=== PATIENT | female | born 1970 | race Two or more races ===

== ENCOUNTER 2019-01-21 07:27 | Inpatient (IN) | payer BC ==
[~2019-01-21 07:27] MED LIST: Lactated Ringers 1,000 ML IV SCH; Lidocaine 1%/Sod Bicarbonate in NS 8.4% 1 ML Syringe IDERM PRN; Sodium Chloride 0.9% 10 ML Syringe FLUSH PRN
[2019-01-21] MEDS ORDERED: Scopolamine 1.5 MG Transdermal Patch TRDERM SCH (08:20)
[2019-01-21] MEDS ORDERED: Sodium Chloride 0.9% 50 ML SDV ONE (08:34)
[2019-01-21] MEDS ORDERED: Lidocaine 1% with EPINEPHrine 1:100,000 20 ML MDV ONE (08:34)
[2019-01-21] MEDS ORDERED: Bupivacaine 0.5% 30 ML SDV ONE (08:34)
[2019-01-21] MEDS ORDERED: Lidocaine 1% 2 ML ONE ×2 (08:37)
[2019-01-21] MEDS ORDERED: Propofol 200 MG/20 ML SDV ONE (08:37)
[2019-01-21] MEDS ORDERED: fentaNYL 250 MCG/5 ML SDV ONE (08:37)
[2019-01-21] MEDS ORDERED: Midazolam 1 MG/ML 2 ML SDV ONE (08:37)
[2019-01-21] MEDS ORDERED: Rocuronium 50 MG/5 ML Vial ONE (08:41)
--- NOTE | 2019-01-21 08:50 | PCM.PREANE ---
Preanesthetic Assessment - Anesthesia/Transfusion/Family Hx Anesthesia History: Prior Anesthesia Reaction Type of Anesthesia Reaction: Other (see below) (ANGELES-scopalamine patch pre-op) Transfusion History: No Prior Transfusion(s) - Review of Systems General: No Symptoms Pulmonary: No Symptoms Cardiovascular: No Symptoms Gastrointestinal: No Symptoms Neurological: No Symptoms Other: Reports: None - Physical Assessment NPO Status Date: 01/20/19 NPO Status Time: 22:30 Pulse: 64 O2 Sat by Pulse Oximetry: 98 Respiratory Rate: 16 Blood Pressure: 127/80 Vital Signs: Last Vital Signs Temp 36.6 C 01/21/19 08:00 Pulse 64 01/21/19 08:00 Resp 16 01/21/19 08:00 BP 127/80 01/21/19 08:00 Pulse Ox 98 01/21/19 08:00 Height: 1.68 m Weight: 70.76 kg ASA Class: 1 Mental Status: Alert & Oriented x3 Airway Class: Mallampati = 1 Dentition: Reports: Normal Dentition Thyro-Mental Finger Breadths: 3 Mouth Opening Finger Breadths: 3 ROM/Head Extension: Full Lungs: Clear to Auscultation, Normal Respiratory Effort Cardiovascular: Regular Rate, Regular Rhythm - Lab Values: Laboratory Last Values Urine HCG, Qual Negative (NEGATIVE) 01/21/19 07:40 - Allergies Allergies/Adverse Reactions: Allergies Allergy/AdvReac Type Severity Reaction Status Date / Time No Known Allergies Allergy Verified 01/21/19 08:30 - Acknowledgements Anesthesia Type Planned: General Anesthesia Pt an Appropriate Candidate for the Planned Anesthesia: Yes Alternatives and Risks of Anesthesia Discussed w Pt/Guardian: Yes Pt/Guardian Understands and Agrees with Anesthesia Plan: Yes PreAnesthesia Questionnaire HEENT History: Reports: None Cardiovascular History: Reports: None Respiratory History: Reports: None Gastrointestinal History: Reports: GERD, Hiatal Hernia Genitourinary History: Other Genitourinary History: Uterine fibroid CHROMOSOMAL DISORDERS COUNSELOR History: Reports: Dysfunctional Uterine Bleeding, , Other (See Below) (prenancy test today negative) Other OB/BYN History: Spontaneous vaginal delivery Musculoskeletal History: Reports: None Neurological History: Reports: None Psychiatric History: Reports: None Endocrine/Metabolic History: Reports: None Hematologic History: Reports: None Immunologic History: Reports: None Oncologic (Cancer) History: Reports: None Dermatologic History: Reports: None - Past Surgical History Head Surgeries/Procedures: Reports: None HEENT Surgical History: Reports: Tonsillectomy Cardiovascular Surgical History: Reports: None Respiratory Surgical History: Reports: None GI Surgical History: Reports: Cholecystectomy, Colonoscopy, EGD Endocrine Surgical History: Reports: None Neurological Surgical History: Reports: None Musculoskeletal Surgical History: Reports: None Oncologic Surgical History: Reports: None Dermatological Surgical History: Reports: None - SUBSTANCE USE Smoking Status *Q: Never Smoker - HOME MEDS Home Medications: Home Meds . [No Known Home Meds] 01/21/19 [History] - CURRENT (IN HOUSE) MEDS Current Meds: Current Medications Lactated Ringer's (Ringers, Lactated) 1,000 mls @ 125 mls/hr IV ASDIRECTED QUAN Stop: 01/21/19 23:00 Lidocaine/Sodium Bicarbonate (Buffered Lidocaine 1% In Ns 8.4%) 0.25 ml IDERM ONETIME PRN PRN Reason: Prior to IV Start Stop: 01/21/19 18:00 Scopolamine (Transderm-Scop) 1.5 mg TRDERM ONETIME QUAN Stop: 01/21/19 18:00 Sodium Chloride (Saline Flush) 10 ml FLUSH ASDIRECTED PRN PRN Reason: Keep Vein Open Stop: 01/21/19 18:00 Discontinued Medications Bupivacaine HCl (Marcaine 0.5%) Confirm Administered Dose 30 ml .ROUTE .STK-MED ONE Stop: 01/21/19 08:35 Fentanyl (Sublimaze) Confirm Administered Dose 250 mcg .ROUTE .STK-MED ONE Stop: 01/21/19 08:38 Lidocaine HCl (Xylocaine-Mpf 1%) Confirm Administered Dose 2 mls @ as directed .ROUTE .STK-MED ONE Stop: 01/21/19 08:38 Lidocaine HCl (Xylocaine-Mpf 1%) Confirm Administered Dose 2 mls @ as directed .ROUTE .STK-MED ONE Stop: 01/21/19 08:38 Lidocaine/Epinephrine (Xylocaine 1% With Epinephrine 1:100,000) Confirm Administered Dose 20 ml .ROUTE .STK-MED ONE Stop: 01/21/19 08:35 Midazolam HCl (Versed 1 Mg/Ml) Confirm Administered Dose 2 mg .ROUTE .STK-MED ONE Stop: 01/21/19 08:38 Propofol (Diprivan 20 Ml) Confirm Administered Dose 200 mg .ROUTE .STK-MED ONE Stop: 01/21/19 08:38 Sodium Chloride (Normal Saline) Confirm Administered Dose 50 ml .ROUTE .STK-MED ONE Stop: 01/21/19 08:35
[2019-01-21] MEDS ORDERED: ceFAZolin 1 GM Vial ONE ×2 (08:56)
[2019-01-21] MEDS ORDERED: HYDROmorphone 0.5 MG/0.5 ML Syringe ONE ×2 (09:20→09:51)
[2019-01-21] MEDS ORDERED: fentaNYL 100 MCG/2 ML SDV ONE ×2 (09:20→10:40)
[2019-01-21] MEDS ORDERED: Ondansetron 4 MG/2 ML SDV IVPUSH PRN (09:59)
[2019-01-21] MEDS ORDERED: HYDROmorphone 0.5 MG/0.5 ML Syringe IVPUSH ONE (10:00)
[2019-01-21] MEDS ORDERED: Ketorolac 30 MG/ML SDV ONE (10:24)
[2019-01-21] MEDS ORDERED: Ondansetron 4 MG/2 ML SDV ONE (10:24)
--- NOTE | 2019-01-21 10:52 | PCM.POSTAN ---
POST ANESTHESIA ASSESSMENT - MENTAL STATUS Mental Status: Alert, Somnolent - VITAL SIGNS Pulse Rate: 67 SaO2: 100 Resp Rate: 10 Blood Pressure: 106/64 Temperature: 98.0 C - RESPIRATORY Respiratory Status: Respiratory Rate WNL, Airway Patent, O2 Saturation Stable - CARDIOVASCULAR CV Status: Pulse Rate WNL, Blood Pressure Stable - GASTROINTESTINAL GI Status: No Symptoms - PAIN Pain Score: 3 - POST OP HYDRATION Hydration Status: Adequate & Stable
--- NOTE | 2019-01-21 11:01 | PCM.OPNOTE ---
- General Post-Op/Procedure Note Date of Surgery/Procedure: 01/21/19 Operative Procedure(s): Total abdominal hysterectomy with bilateral salpingectomy through pfannenstiel incision, sub-fascial, mid-urethral sling Findings: Uterus was enlarged approximately 13 weeks size. Uterus weighed 557 g. Ovaries looked functional and normal bilaterally and were left in place per patient desire. Remainder of her pelvis was unremarkable. Pre Op Diagnosis: 1. Abnormal uterine bleeding. 2. Uterine fibroid. 3. 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 She was given 2 g of Ancef IV for infection prophylaxis. She had sequential compression stockings placed for DVT prophylaxis. She is administered general endotracheal anesthesia. After adequate administration of anesthesia patient was placed in a dorsal lithotomy position using to have her bladder sling placed also she was then was prepped vaginally and abdominally in the routine fashion. Ross catheter was placed. Patient's abdomen was then opened through her a Pfannenstiel skin incision scar. The incision was carried down through skin, subcutaneous and fascial layers. Abdominal cavity was entered without problems. An Mikie self-retaining retractor was placed. Uterus was found be very large consistent with a 13 week size uterus. Each of the uterus eventually was found to be 557 g. The uterus was elevated with a double-tooth tenaculum at the fundus. Using an Enseal vessel closure device the fallopian tube mesosalpinx was taken down on the patient's left side. Ovaries were conserved per patient desire. The ovarian ligament, round ligament, broad ligament were then taken down in a routine stepwise fashion using the Enseal system. Same procedure was done on the right side. The cardinal ligaments and taken down on each side to the level of the to the cervix. The angles of the vagina were then crossclamped using Devoarh clamps 2 these pedicles were cut and were suture ligated with Devorah stitch of #1 Vicryl. A [id number] suture was then placed in the mid incision to complete the closure. Hemostasis was confirmed at this time. The pelvis was irrigated with fluid aspirated. The one sponge been placed was removed. The abdominal was then closed. The fascia was closed with a running suture of #1 PDS from angle to angle. The subcutaneous area was closed with 2 layers of Monocryl suture first an interrupted layer and second a running layer reapproximating the skin edges closer to allow for better subcuticular suture closure. Subcuticular closure was then undertaken using 3-0 Monocryl suture on the Buster needle. The incision was further asked made with Prineo mesh. The subfascial mid-urethral sling procedure was then performed. She was placed in the dorsal lithotomy position. Her bladder had been drained with a indwelling bladder catheter during the course of the hysterectomy. Normal urine was removed. The epithelium overlying the urethra was grasped approximately 1 cm from the urethral meatus and approximately 2 cm cephalad from there with Allis clamps. The area of the skin overlying the medial aspect of the obturator foramen on each side just posterior to the origin the abductor longus musclewas marked with a marking pen. These 2 areas and the sub-fascial layer of the vaginal were then infiltrated with lidocaine quarter percent with epinephrine total of approximately 10 mL was used. incisions made in the epithelium overlying the urethra and 2 small stab wounds 3 mm in length were made in the 2 areas of the panty line of the patient. The subfascial planes and adequately dissected bilaterally to allow placement of the mesh. The helical adapter was then placed through the obturator on patient's left side brought out through the vaginal subfascial plane. Mesh was attached to it and then was pulled back through the obturator foramen. Same was done on the right side. Mesh was then snugged up to the urethra. Dilator 15 mm in diameter was used as a spacer to place the mesh in a tension-free position. At this point the mesh was cut off at the skin surface and the dilator was removed. The midline epithelium was closed with a short running suture of 3-0 Monocryl. Skin incisions were closed with Dermabond skin glue. The patient was returned to supine position, awakened from general endotracheal anesthesia and was discharged from operating room in good condition
[2019-01-21] MEDS: fentaNYL 100 MCG/2 ML SDV IVPUSH PRN ×2 (11:04→11:27)
[2019-01-21] MEDS ORDERED: HYDROmorphone 0.5 MG/0.5 ML Syringe IVPUSH PRN ×2 (11:11→12:11)
--- NOTE | 2019-01-21 12:58 | PCM48HPAN ---
Post Anesthesia Note - EVALUATION WITHIN 48HRS OF ANESTHETIC Vital Signs in Normal Range: Yes Patient Participated in Evaluation: Yes Respiratory Function Stable: Yes Airway Patent: Yes Cardiovascular Function Stable: Yes Hydration Status Stable: Yes Pain Control Satisfactory: Yes Nausea and Vomiting Control Satisfactory: Yes Mental Status Recovered: Yes
[2019-01-21] MEDS: Ondansetron 4 MG/2 ML SDV IVPUSH PRN ×2 (14:06→18:31)
[2019-01-21] MEDS: Acetaminophen/oxyCODONE 325-5 MG Tab PO PRN ×3 (14:06→22:55)
[2019-01-21] MEDS: Ibuprofen 800 MG Tab PO SCH ×2 (17:10→18:30)
[2019-01-21] MEDS: Docusate Sodium 100 MG Cap PO SCH (21:30)
[2019-01-22] MEDS: Ondansetron 4 MG/2 ML SDV IVPUSH PRN (01:17)
[2019-01-22] MEDS: Ibuprofen 800 MG Tab PO SCH ×4 (01:25→17:57)
[2019-01-22] MEDS: Acetaminophen/oxyCODONE 325-5 MG Tab PO PRN ×3 (07:39→19:22)
--- NOTE | 2019-01-22 08:00 | PCM.SURGPN ---
- General Info Date of Service: 01/22/19 Functional Status: Reports: Pain Controlled - Review of Systems General: Reports: No Symptoms HEENT: Reports: No Symptoms Pulmonary: Reports: No Symptoms Cardiovascular: Reports: No Symptoms Gastrointestinal: Reports: No Symptoms Genitourinary: Reports: No Symptoms Musculoskeletal: Reports: No Symptoms Skin: Reports: No Symptoms Neurological: Reports: No Symptoms Psychiatric: Reports: No Symptoms - Patient Data Vitals - Most Recent: Last Vital Signs Temp 36.6 C 01/22/19 05:41 Pulse 56 L 01/22/19 05:41 Resp 14 01/22/19 05:41 BP 104/64 01/22/19 05:41 Pulse Ox 98 01/22/19 05:41 Weight - Most Recent: 72.711 kg I&O - Last 24 Hours: Intake & Output 01/21/19 01/22/19 01/22/19 22:59 06:59 14:59 Intake Total 1460 1600 Output Total 1200 1750 Balance 260 -150 Lab Results Last 24 Hrs: Laboratory Results - last 24 hr 01/21/19 01/22/19 Range/Units 08:10 05:55 WBC 9.77 (3.98-10.04) K/mm3 RBC 3.62 L (3.98-5.22) M/mm3 Hgb 11.0 L (11.2-15.7) gm/L Hct 34.1 (34.1-44.9) % MCV 94.2 (79.4-94.8) fl MCH 30.4 (25.6-32.2) pg MCHC 32.3 (32.2-35.5) g/dl RDW Std Deviation 44.6 (36.4-46.3) fL Plt Count 201 (182-369) K/mm3 MPV 11.5 (9.4-12.3) fl Neut % (Auto) 62.0 (34.0-71.1) % Lymph % (Auto) 28.4 (19.3-51.7) % Morgan % (Auto) 8.8 (4.7-12.5) % Eos % (Auto) 0.5 L (0.7-5.8) Baso % (Auto) 0.1 (0.1-1.2) % Neut # (Auto) 6.06 (1.56-6.13) K/mm3 Lymph # (Auto) 2.77 (1.18-3.74) K/mm3 Morgan # (Auto) 0.86 H (0.24-0.36) K/mm3 Eos # (Auto) 0.05 (0.04-0.36) K/mm3 Baso # (Auto) 0.01 (0.01-0.08) K/mm3 Blood Type A POSITIVE Gel Antibody Screen Negative Med Orders - Current: Current Medications Docusate Sodium (Colace) 100 mg PO BID [facility] Last Admin: 01/21/19 21:30 Dose: 100 mg Hydromorphone HCl (Dilaudid) 0.2 mg IVPUSH Q2H PRN PRN Reason: Pain (severe 7-10) Last Admin: 01/22/19 01:17 Dose: 0.2 mg Ibuprofen (Motrin) 800 mg PO Q8H [facility] Last Admin: 01/22/19 04:05 Dose: Not Given Miscellaneous Information (Remove Patch) 0 ea TRDERM ONETIME ONE Stop: 01/24/19 09:01 Ondansetron HCl (Zofran) 4 mg IVPUSH Q4H PRN PRN Reason: Nausea/Vomiting Last Admin: 01/22/19 01:17 Dose: 4 mg Oxycodone/Acetaminophen (Percocet 325-5 Mg) 2 tab PO Q4H PRN PRN Reason: Pain (moderate 4-6) Last Admin: 01/22/19 07:39 Dose: 2 tab Discontinued Medications Bupivacaine HCl (Marcaine 0.5%) Confirm Administered Dose 30 ml .ROUTE .STK-MED ONE Stop: 01/21/19 08:35 Last Admin: 01/21/19 09:26 Dose: 20 ml Cefazolin Sodium (Ancef) Confirm Administered Dose 1 gm .ROUTE .STK-MED ONE Stop: 01/21/19 08:57 Cefazolin Sodium (Ancef) Confirm Administered Dose 1 gm .ROUTE .STK-MED ONE Stop: 01/21/19 08:57 Fentanyl (Sublimaze) Confirm Administered Dose 250 mcg .ROUTE .STK-MED ONE Stop: 01/21/19 08:38 Fentanyl (Sublimaze) Confirm Administered Dose 100 mcg .ROUTE .STK-MED ONE Stop: 01/21/19 09:21 Fentanyl (Sublimaze) 50 mcg IVPUSH Q5M PRN PRN Reason: Pain Stop: 01/21/19 13:00 Last Admin: 01/21/19 11:27 Dose: 50 mcg Fentanyl (Sublimaze) Confirm Administered Dose 100 mcg .ROUTE .STK-MED ONE Stop: 01/21/19 10:41 Hydromorphone HCl (Dilaudid) Confirm Administered Dose 0.5 mg .ROUTE .STK-MED ONE Stop: 01/21/19 09:21 Hydromorphone HCl (Dilaudid) Confirm Administered Dose 0.5 mg .ROUTE .STK-MED ONE Stop: 01/21/19 09:52 Hydromorphone HCl (Dilaudid) 1 mg IVPUSH ONETIME ONE Stop: 01/21/19 10:01 Last Admin: 01/21/19 12:42 Dose: Not Given Hydromorphone HCl (Dilaudid) 0.5 mg IVPUSH ASDIRECTED PRN PRN Reason: Pain (severe 7-10) Stop: 01/21/19 18:00 Last Admin: 01/21/19 11:15 Dose: 0.5 mg Lactated Ringer's (Ringers, Lactated) 1,000 mls @ 125 mls/hr IV ASDIRECTED QUAN Stop: 01/21/19 23:00 Last Admin: 01/21/19 08:10 Dose: 125 mls/hr Lidocaine HCl (Xylocaine-Mpf 1%) Confirm Administered Dose 2 mls @ as directed .ROUTE .STK-MED ONE Stop: 01/21/19 08:38 Lidocaine HCl (Xylocaine-Mpf 1%) Confirm Administered Dose 2 mls @ as directed .ROUTE .STK-MED ONE Stop: 01/21/19 08:38 Ketorolac Tromethamine (Toradol) Confirm Administered Dose 30 mg .ROUTE .STK- MED ONE Stop: 01/21/19 10:25 Lidocaine/Epinephrine (Xylocaine 1% With Epinephrine 1:100,000) Confirm Administered Dose 20 ml .ROUTE .STK-MED ONE Stop: 01/21/19 08:35 Last Admin: 01/21/19 10:15 Dose: 5 ml Lidocaine/Sodium Bicarbonate (Buffered Lidocaine 1% In Ns 8.4%) 0.25 ml IDERM ONETIME PRN PRN Reason: Prior to IV Start Stop: 01/21/19 18:00 Last Admin: 01/21/19 08:10 Dose: 0.25 ml Midazolam HCl (Versed 1 Mg/Ml) Confirm Administered Dose 2 mg .ROUTE .STK-MED ONE Stop: 01/21/19 08:38 Ondansetron HCl (Zofran) 4 mg IVPUSH ONETIME PRN PRN Reason: Nausea/Vomiting Stop: 01/21/19 13:00 Ondansetron HCl (Zofran) Confirm Administered Dose 4 mg .ROUTE .STK-MED ONE Stop: 01/21/19 10:25 Propofol (Diprivan 20 Ml) Confirm Administered Dose 200 mg .ROUTE .STK-MED ONE Stop: 01/21/19 08:38 Rocuronium [place] (Zemuron) Confirm Administered Dose 50 mg .ROUTE .STK-MED ONE Stop: 01/21/19 08:42 Scopolamine (Transderm-Scop) 1.5 mg TRDERM ONETIME QUAN Stop: 01/21/19 18:00 Last Admin: 01/21/19 08:45 Dose: 1.5 mg Sodium Chloride (Saline Flush) 10 ml FLUSH ASDIRECTED PRN PRN Reason: Keep Vein Open Stop: 01/21/19 18:00 Sodium Chloride (Normal Saline) Confirm Administered Dose 50 ml .ROUTE .STK-MED ONE Stop: 01/21/19 08:35 Last Admin: 01/21/19 10:15 Dose: 15 ml - Exam Wound/Incisions: Healing Well General: Alert, Oriented HEENT: Pupils Equal Neck: Supple Lungs: Clear to Auscultation, Normal Respiratory Effort Cardiovascular: Regular Rate, Regular Rhythm GI/Abdominal Exam: Normal Bowel Sounds, Soft, Non-Tender, No Organomegaly, No Distention, No Abnormal Bruit, No Mass, Pelvis Stable Extremities: Normal Inspection, Normal Range of Motion, Non-Tender, No Pedal Edema, Normal Capillary Refill Neurological: No New Focal Deficit Psy/Mental Status: Alert, Normal Affect, Normal Mood - Problem List Review Problem List Initiated/Reviewed/Updated: Yes - My Orders Last 24 Hours: Active Orders 24 hr Category Date Time Status Patient Status [ADT] Routine ADT 01/21/19 12:10 Active Ambulate [RC] ASDIRECTED Care 01/21/19 12:11 Active Antiembolic Devices [RC] 10,22 Care 01/21/19 12:11 Active Communication Order [RC] ROUTINE Care 01/21/19 09:58 Inactive May Shower [RC] ASDIRECTED Care 01/21/19 12:11 Active Notify Provider [RC] ASDIRECTED Care 01/21/19 09:59 Inactive Oxygen Therapy [RC] ASDIRECTED Care 01/21/19 09:59 Inactive Urinary Catheter Assessment [RC] Care 01/21/19 12:11 Active Vital Signs [RC] Q15M Care 01/21/19 09:59 Inactive Vital Signs [RC] Q4HR Care 01/21/19 12:11 Active Wound Care [RC] Care 01/21/19 12:11 Active Regular Diet [DIET] Diet 01/21/19 Lunch Active PATIENT RETYPE [BBK] Routine Lab 01/21/19 08:10 Received Acetaminophen/oxyCODONE [Percocet 325-5 MG] Med 01/21/19 12:11 Active 2 tab PO Q4H PRN Docusate Sodium [Colace] Med 01/21/19 21:00 Active 100 mg PO BID HYDROmorphone [Dilaudid] Med 01/21/19 12:11 Active 0.2 mg IVPUSH Q2H PRN Ibuprofen [Motrin] Med 01/21/19 18:30 Active 800 mg PO Q8H Ondansetron [Zofran] Med 01/21/19 12:11 Active 4 mg IVPUSH Q4H PRN Remove Patch Med 01/24/19 09:00 Once 0 ea TRDERM ONETIME ONE Sequential Compression Device [OM.PC] Per Unit Routine Oth 01/21/19 12:11 Ordered Resuscitation Status Routine Resus Stat 01/21/19 10:49 Ordered Medication Orders Docusate Sodium (Colace) 100 mg PO BID QUAN Last Admin: 01/21/19 21:30 Dose: 100 mg Hydromorphone HCl (Dilaudid) 0.2 mg IVPUSH Q2H PRN PRN Reason: Pain (severe 7-10) Last Admin: 01/22/19 01:17 Dose: 0.2 mg Ibuprofen (Motrin) 800 mg PO Q8H [facility]AN Last Admin: 01/22/19 04:05 Dose: Admin: 01/22/19 01:25 Dose: 800 mg Admin: 01/21/19 18:30 Dose: Not Given Admin: 01/21/19 17:10 Dose: 800 mg Miscellaneous Information (Remove Patch) 0 ea TRDERM ONETIME ONE Stop: 01/24/19 09:01 Ondansetron HCl (Zofran) 4 mg IVPUSH Q4H PRN PRN Reason: Nausea/Vomiting Last Admin: 01/22/19 01:17 Dose: 4 mg Admin: 01/21/19 18:31 Dose: 4 mg Admin: 01/21/19 14:06 Dose: 4 mg Oxycodone/Acetaminophen (Percocet 325-5 Mg) 2 tab PO Q4H PRN PRN Reason: Pain (moderate 4-6) Last Admin: 01/22/19 07:39 Dose: 2 tab Admin: 01/21/19 22:55 Dose: 2 tab Admin: 01/21/19 18:30 Dose: 2 tab Admin: 01/21/19 14:06 Dose: 2 tab - Assessment Assessment (Free Text/Narrative):: Postop day 1. Doing great. Passing minimal gas. Likely wants to go home tomorrow given remote from hospital.
[2019-01-22] MEDS: Docusate Sodium 100 MG Cap PO SCH ×2 (11:59→20:15)
[2019-01-23] MEDS: Acetaminophen/oxyCODONE 325-5 MG Tab PO PRN ×2 (00:18→07:25)
[2019-01-23] MEDS: Ibuprofen 800 MG Tab PO SCH ×2 (03:30→11:43)
--- NOTE | 2019-01-23 08:24 | PCM.DCSUM1 ---
Discharge Summary - Hospital Course HPI Initial Comments: Doing well this morning. No complaints. Desires discharge to home. Pain controlled, ambulating, voiding and tolerating po's. Diagnosis: Stroke: No - Discharge Data Discharge Date: 01/23/19 Discharge Disposition: Home, Self-Care 01 Condition: Good - Patient Summary/Data Operative Procedure(s) Performed: Total abdominal hysterectomy with bilateral salpingectomy through pfannenstiel incision, sub-fascial, mid-urethral sling - Patient Instructions Diet: Usual Diet as Tolerated Activity: No Strenuous Activities Activity, Other: pelvic rest, weight lifting nothing more than gallon of milk for 2 weeks Driving: May Drive Today Showering/Bathing: May Shower Wound/Incision Care: Keep Operative Site/Wound Site Clean and Dry, Change Dressing Daily, Do NOT Change Dressing Notify Provider of: Fever, Increased Pain, Swelling and Redness, Drainage, Nausea and/or Vomiting - Discharge Plan *PRESCRIPTION DRUG MONITORING PROGRAM REVIEWED*: No *COPY OF PRESCRIPTION DRUG MONITORING REPORT IN PATIENT DARLENE: No Home Medications: Home Meds . [No Known Home Meds] 01/21/19 [History] Referrals: Juarez Sosa MD [Physician] - - Discharge Summary/Plan Comment DC Time >30 min.: No - Patient Data Vitals - Most Recent: Last Vital Signs Temp 36.8 C 01/23/19 04:23 Pulse 67 01/23/19 04:23 Resp 14 01/23/19 04:23 BP 105/57 L 01/23/19 04:23 Pulse Ox 97 01/23/19 04:23 Weight - Most Recent: 72.03 kg I&O - Last 24 hours: Intake & Output 01/22/19 01/23/19 01/23/19 22:59 06:59 14:59 Intake Total 1210 800 Balance 1210 800 Med Orders - Current: Current Medications Docusate Sodium (Colace) 100 mg PO BID [facility] Last Admin: 01/22/19 20:15 Dose: 100 mg Hydromorphone HCl (Dilaudid) 0.2 mg IVPUSH Q2H PRN PRN Reason: Pain (severe 7-10) Last Admin: 01/22/19 01:17 Dose: 0.2 mg Ibuprofen (Motrin) 800 mg PO Q8H [facility] Last Admin: 01/23/19 03:30 Dose: 800 mg Miscellaneous Information (Remove Patch) 0 ea TRDERM ONETIME ONE Stop: 01/24/19 09:01 Ondansetron HCl (Zofran) 4 mg IVPUSH Q4H PRN PRN Reason: Nausea/Vomiting Last Admin: 01/22/19 01:17 Dose: 4 mg Oxycodone/Acetaminophen (Percocet 325-5 Mg) 2 tab PO Q4H PRN PRN Reason: Pain (moderate 4-6) Last Admin: 01/23/19 07:25 Dose: 2 tab Discontinued Medications Bupivacaine HCl (Marcaine 0.5%) Confirm Administered Dose 30 ml .ROUTE .STK-MED ONE Stop: 01/21/19 08:35 Last Admin: 01/21/19 09:26 Dose: 20 ml Cefazolin Sodium (Ancef) Confirm Administered Dose 1 gm .ROUTE .STK-MED ONE Stop: 01/21/19 08:57 Cefazolin Sodium (Ancef) Confirm Administered Dose 1 gm .ROUTE .STK-MED ONE Stop: 01/21/19 08:57 Fentanyl (Sublimaze) Confirm Administered Dose 250 mcg .ROUTE .STK-MED ONE Stop: 01/21/19 08:38 Fentanyl (Sublimaze) Confirm Administered Dose 100 mcg .ROUTE .STK-MED ONE Stop: 01/21/19 09:21 Fentanyl (Sublimaze) 50 mcg IVPUSH Q5M PRN PRN Reason: Pain Stop: 01/21/19 13:00 Last Admin: 01/21/19 11:27 Dose: 50 mcg Fentanyl (Sublimaze) Confirm Administered Dose 100 mcg .ROUTE .STK-MED ONE Stop: 01/21/19 10:41 Hydromorphone HCl (Dilaudid) Confirm Administered Dose 0.5 mg .ROUTE .STK-MED ONE Stop: 01/21/19 09:21 Hydromorphone HCl (Dilaudid) Confirm Administered Dose 0.5 mg .ROUTE .STK-MED ONE Stop: 01/21/19 09:52 Hydromorphone HCl (Dilaudid) 1 mg IVPUSH ONETIME ONE Stop: 01/21/19 10:01 Last Admin: 01/21/19 12:42 Dose: Not Given Hydromorphone HCl (Dilaudid) 0.5 mg IVPUSH ASDIRECTED PRN PRN Reason: Pain (severe 7-10) Stop: 01/21/19 18:00 Last Admin: 01/21/19 11:15 Dose: 0.5 mg Lactated Ringer's (Ringers, Lactated) 1,000 mls @ 125 mls/hr IV ASDIRECTED QUAN Stop: 01/21/19 23:00 Last Admin: 01/21/19 08:10 Dose: 125 mls/hr Lidocaine HCl (Xylocaine-Mpf 1%) Confirm Administered Dose 2 mls @ as directed .ROUTE .STK-MED ONE Stop: 01/21/19 08:38 Lidocaine HCl (Xylocaine-Mpf 1%) Confirm Administered Dose 2 mls @ as directed .ROUTE .STK-MED ONE Stop: 01/21/19 08:38 Ketorolac Tromethamine (Toradol) Confirm Administered Dose 30 mg .ROUTE .STK- MED ONE Stop: 01/21/19 10:25 Lidocaine/Epinephrine (Xylocaine 1% With Epinephrine 1:100,000) Confirm Administered Dose 20 ml .ROUTE .STK-MED ONE Stop: 01/21/19 08:35 Last Admin: 01/21/19 10:15 Dose: 5 ml Lidocaine/Sodium Bicarbonate (Buffered Lidocaine 1% In Ns 8.4%) 0.25 ml IDERM ONETIME PRN PRN Reason: Prior to IV Start Stop: 01/21/19 18:00 Last Admin: 01/21/19 08:10 Dose: 0.25 ml Midazolam HCl (Versed 1 Mg/Ml) Confirm Administered Dose 2 mg .ROUTE .STK-MED ONE Stop: 01/21/19 08:38 Ondansetron HCl (Zofran) 4 mg IVPUSH ONETIME PRN PRN Reason: Nausea/Vomiting Stop: 01/21/19 13:00 Ondansetron HCl (Zofran) Confirm Administered Dose 4 mg .ROUTE .STK-MED ONE Stop: 01/21/19 10:25 Propofol (Diprivan 20 Ml) Confirm Administered Dose 200 mg .ROUTE .STK-MED ONE Stop: 01/21/19 08:38 Rocuronium [place] (Zemuron) Confirm Administered Dose 50 mg .ROUTE .STK-MED ONE Stop: 01/21/19 08:42 Scopolamine (Transderm-Scop) 1.5 mg TRDERM ONETIME QUAN Stop: 01/21/19 18:00 Last Admin: 01/21/19 08:45 Dose: 1.5 mg Sodium Chloride (Saline Flush) 10 ml FLUSH ASDIRECTED PRN PRN Reason: Keep Vein Open Stop: 01/21/19 18:00 Sodium Chloride (Normal Saline) Confirm Administered Dose 50 ml .ROUTE .STK-MED ONE Stop: 01/21/19 08:35 Last Admin: 01/21/19 10:15 Dose: 15 ml
[2019-01-23 09:24] VITALS: BP 113/62
[2019-01-23] MEDS ORDERED: Scopolamine 1.5 MG Transdermal Patch TOP ONE (11:38)
[2019-01-23] MEDS: Docusate Sodium 100 MG Cap PO SCH (11:43)
== END 2019-01-23 11:50 | disposition home or self-care (01) | DRG 519 ==
LOC: JD.SDS 07:27 → JD.MS 12:10
PROVIDERS: ADMIT Obstetrics & Gynecology; ATTEND Obstetrics & Gynecology
PROC: 0TSD0ZZ Reposition Urethra, Open Approach (ICD-10-PCS; principal; 2019-01-21)
PROC: 0UT90ZZ Resection of Uterus, Open Approach (ICD-10-PCS; principal; 2019-01-21)
PROC: 0UT70ZZ Resection of Bilateral Fallopian Tubes, Open Approach (ICD-10-PCS; principal; 2019-01-21)
DX: D25.9 Leiomyoma of uterus, unspecified (principal); N39.3 Stress incontinence (female) (male); K21.9 Gastro-esophageal reflux disease without esophagitis; K44.9 Diaphragmatic hernia without obstruction or gangrene; N84.1 Polyp of cervix uteri; N92.0 Excessive and frequent menstruation with regular cycle; Z90.49 Acquired absence of other specified parts of digestive tract
CPT/HCPCS: 00840; 36415; 81025; 85025; 86850; 86900; 86901; A9270-GY; C1771; J0690; J1170; J1885; J2001; J2250; J2405; J2704; J3010; J3490; J7120

== ENCOUNTER 2025-06-15 06:54 | Day surgery (SDC) | payer BC ==
[~2025-06-15 06:54] MED LIST changes: -Lactated Ringers 1,000 ML IV SCH; -Lidocaine 1%/Sod Bicarbonate in NS 8.4% 1 ML Syringe IDERM PRN; +Sodium Chloride 0.9% 10 ML Syringe FLUSH SCH
[2025-06-15] MEDS ORDERED: propofoL 500 MG/50 ML 50 ML ONE (07:13)
[2025-06-15] MEDS: Lactated Ringers 1,000 ML IV SCH (07:15)
[2025-06-15] MEDS ORDERED: Labetalol 100 MG/20 ML MDV ONE (08:24)
[2025-06-15 08:43] VITALS: BP 135/79; PULSE 66
== END 2025-06-15 08:35 | disposition home or self-care (01) ==
LOC: JD.SDS 06:54
PROVIDERS: ATTEND Surgery
DX: Z12.11 Encounter for screening for malignant neoplasm of colon (principal); Z80.0 Family history of malignant neoplasm of digestive organs; Z79.899 Other long term (current) drug therapy
CPT/HCPCS: 00812; J1920; J2704; J7120